=== PATIENT | female | born 1995 | race Caucasian/White ===

== ENCOUNTER → 2016-11-01 | Outpatient (CLI) | payer OTHER ==
--- NOTE | 2016-11-01 14:58 | DIAGNOSTIC IMAGING REPORT ---
RIGHT TIBIA AND FIBULA 4 VIEWS CLINICAL HISTORY: Right leg pain. FINDINGS: AP, lateral, and bilateral oblique views of the right tibia and fibula are obtained. No prior studies are available for comparison at the time of dictation. The skeletal structures are well mineralized. There is no radiographic evidence of tibial or fibular fracture. The knee and ankle joints appearing maintained. The overlying soft tissues are within normal limits. An os trigonum is incidentally noted. IMPRESSION: Unremarkable radiographic assessment of the right tibia and fibula. Electronically signed by: Paco Agrawal M.D. 11/01/2016 2:57 PM Dictated Date/Time: 11/01/2016 2:55 PM
== END | disposition home or self-care (01) ==
LOC: C.RDSM 08:40
PROVIDERS: ATTEND Family Medicine
DX: M25.571 Pain in right ankle and joints of right foot (principal)